=== PATIENT | female | born 1990 | race Caucasian/White ===

== ENCOUNTER 2017-01-09 18:06 | Emergency (ER) | payer SELFPAY ==
--- NOTE | ~2017-01-09 | ER ---
PATIENT'S NAME: [facility]ANESSA [facility] AGE: 26 Y [address] ROOM: [place] [address] LOCATION: [facility] ADMIT DATE: 01/09/2017 ER/Outpatient Report DISCHARGE DATE: 01/09/2017 FAMILY PHYSICIAN: Physician, Unknown ATTENDING PHYSICIAN: Katie Weiss Time of Arrival: 1813 hours. Time of Evaluation: 1820 hours. CHIEF COMPLAINT: Elevated lithium level. HISTORY OF PRESENT ILLNESS: The patient states that she had her blood drawn this morning at [facility] and then got a phone call [facility] telling her that she needed to come to the ER because her lithium level was 2.2. She denies being dizzy or lightheaded. She states she has been a little short of breath. She went running this afternoon. She was coughing after running. She was concerned she might have bronchitis. She has not had a fever, has not had chills. She states her lithium is at 600 mg b.i.d. She has been on lithium for the last 6 years. She states prior to today, the last time she had had the level checked was 3 years ago. ALLERGIES: PROPRANOLOL CAUSED HER HEAD TO BE SHAKY. CURRENT MEDICATIONS: On the chart and reviewed by me. PAST MEDICAL HISTORY: Bipolar, depression. PAST SURGERIES: Negative. SOCIAL HISTORY: She states that she smokes at least 5 cigarettes a day, smokes marijuana at least 3 times a week, and drinks alcohol at least 3 times a week. She states that her primary provider is Johnna that she sees through Telehealth. She has seen Addi, the nurse practitioner. ROS: All negative other than those mentioned in the HPI. PHYSICAL EXAMINATION: PATIENT'S NAME: LAURENCE [facility]BA [facility] AGE: 26 Y [address] ROOM: [place] [address] LOCATION: [facility] ADMIT DATE: 01/09/2017 ER/Outpatient Report DISCHARGE DATE: 01/09/2017 FAMILY PHYSICIAN: Physician, Unknown ATTENDING PHYSICIAN: Katie Weiss VITAL SIGNS: She weighed 50 kg; blood pressure is 131/62; pulse of 104; respirations 20; temperature of 99.2, tympanic; O2 saturation is 100% on room air. GENERAL: She is awake, alert, and oriented x4. SKIN: [place], warm, and dry. RESPIRATIONS: Even and nonlabored. LUNGS: Lung sounds are decreased in the bases. HEART: Regular rate and rhythm. LABORATORY DATA AND X-RAYS: Labs were drawn. White count is 15.7, ANC is 11.5. Chem panel is within normal limits. Magnesium was 2.4. Free T4 was 0.9 with a TSH of 2.8. Noonday was 1.3. EKG shows a sinus rhythm. Chest x-ray was completed. We will await Radiology report. Questionable bronchitis. IMPRESSION: Cough and bronchitis. PLAN: Home, rest, fluids. Bactrim DS b.i.d. x10 days. She is to hold her lithium and follow up with her provider. As we were going over the dismissal instructions, she states her provider wanted her to stop the lithium altogether anyway. I encouraged her to follow up with them to determine if she is supposed to just stop it or wean off it. She verbalized understanding. HAI HARO APRN FOR MD JAY CHÁVEZ/mat /[id number] d: 01/10/17 0414 t: 01/12/17 1826, OUTPATIENT REPORT
[2017-01-09 18:43] LABS: BASOPHIL # 0.1 K/uL (0.0-0.2); BASOPHIL % 0.8 %; EOSINOPHIL # 0.3 K/uL (0.0-0.5); EOSINOPHIL % 1.9 %; HEMATOCRIT 34.6 % (33.0-46.0); HEMOGLOBIN 11.7 g/dL (11.0-15.0); IMMATURE GRANULOCYTE # 0.1 K/uL (0.0-0.3); IMMATURE GRANULOCYTE % 0.5 %; LYMPHOCYTE # 2.5 K/uL (0.8-4.0); LYMPHOCYTE % 16.2 %; MCH 33.3 pg (27.0-34.0); MCHC 33.8 gm/dL (32.0-36.5); MCV 98.6 fl (83.0-98.0); MONOCYTE # 1.1 K/uL (0.0-1.0); MONOCYTE % 7.1 %; MPV 9.2 fl (9.4-12.4); NEUTROPHIL # (ANC) 11.5 K/uL (1.8-7.8); NEUTROPHIL % 73.5 %; NRBC % 0 /100WBC (0-0.00); PLATELET COUNT 573 K/uL (150-450); RBC 3.51 M/uL (3.50-5.00); RDW-CV 12.6 % (11.9-14.6); WBC 15.7 K/uL (4.0-11.0)
[2017-01-09 19:03] LABS: ALBUMIN 4.1 gm/dL (3.5-5.0); ALK PHOS 105 IU/L (33-138); ALT 27 IU/L (12-78); ANION GAP 9.4 (10.0-19.0); AST 21 IU/L (10-40); BLOOD UREA NITROGEN 7 mg/dL (6-24); CALCIUM 9.3 mg/dL (8.5-10.5); CHLORIDE 108 mMol/L (96-110); CO2 26 mMol/L (22-32); ESTIMATED GFR (MDRD EQUATION) > 60; MAGNESIUM 2.4 mg/dL (1.8-2.6); POTASSIUM 3.4 mMol/L (3.7-5.1); SODIUM 140 mMol/L (135-145); TOTAL BILIRUBIN 0.3 mg/dL (0.0-1.5); TOTAL PROTEIN 7.1 g/dL (6.0-8.4)
== END 2017-01-09 19:41 | disposition disaster alternative care site (69) ==
LOC: GMED 18:06
PROVIDERS: Nurse Practitioner Family
DX: J40 Bronchitis, not specified as acute or chronic (principal); F31.9 Bipolar disorder, unspecified; F17.210 Nicotine dependence, cigarettes, uncomplicated; Z88.8 Allergy status to other drugs, medicaments and biological substances; Z79.899 Other long term (current) drug therapy